=== PATIENT | female | born 1970 | race Caucasian/White ===

== ENCOUNTER 2021-12-03 08:59 | Emergency (ER) | payer OTHER ==
[2021-12-03] MEDS ORDERED: ACETAMINOPHEN 325 MG TABLET (FP) PO ONE (09:10)
[2021-12-03] MEDS ORDERED: SODIUM CHLORIDE 0.9% 1000 ML INFUS.BAG IV ONE (09:10)
[2021-12-03] MEDS ORDERED: ACETAMINOPHEN 325 MG TABLET (FP) ONE (09:24)
[2021-12-03 09:48] VITALS: TEMP 98.8; BMI 21.7
[2021-12-03 11:52] LABS: BASO % 1.2 % (0-2.0); HEMATOCRIT 38.3 % (32.4-45.2); HEMOGLOBIN 13.2 GM/dL (10.7-15.3); LYMPH % 15.1 % (8-40); MCHC 34.4 g/dl (32.0-36.0); MEAN CELL VOLUME 87.2 fl (80-96); MEAN PLT VOLUME 8.8 fl (7.5-11.1); MONO % 4.8 % (3.8-10.2); NEUT % 77.9 % (42.8-82.8); PLATELET COUNT 280 10^3/uL (134-434); RBC 4.39 M/mm3 (3.60-5.2); RDW 13.2 % (11.6-15.6); WHITE BLOOD COUNT 9.1 K/mm3 (4.0-10.0)
[2021-12-03 11:58] LABS: CALCIUM 8.9 mg/dL (8.5-10.1)
[2021-12-03 11:59] LABS: ALBUMIN 4.2 g/dl (3.4-5.0); BLOOD UREA NITROGEN 11.6 mg/dL (7-18)
[2021-12-03 12:01] LABS: CREATININE 0.7 mg/dL (0.55-1.3)
[2021-12-03 12:03] LABS: BILIRUBIN,TOTAL 0.7 mg/dL (0.2-1); TOT PROT 7.3 g/dl (6.4-8.2)
[2021-12-03 12:28] VITALS: BP 145/65; PULSE 65
== END 2021-12-03 12:29 | disposition home or self-care (01) ==
LOC: FER 08:59
PROC: 0HQ0XZZ Repair Scalp Skin, External Approach (ICD-10-PCS; principal; 2021-12-03)
DX: R55 Syncope and collapse (principal); S01.01XA Laceration without foreign body of scalp, initial encounter; W19.XXXA Unspecified fall, initial encounter
CPT/HCPCS: 36415; 70450-TC; 71045-TC-FY; 80053; 84484; 85025; 93005; 99285-25

== ENCOUNTER 2023-06-20 14:04 | Emergency (ER) | payer OTHER ==
[2023-06-20] MEDS ORDERED: FAMOTIDINE 20 MG TABLET PO ONE (14:06)
[2023-06-20] MEDS ORDERED: diphenhydrAMINE HCL 25 MG CAPSULE (FP) PO ONE (14:06)
[2023-06-20] MEDS ORDERED: predniSONE 10 MG TABLET (UD) ONE (14:27)
[2023-06-20] MEDS ORDERED: FAMOTIDINE 20 MG TABLET ONE (14:27)
[2023-06-20] MEDS ORDERED: predniSONE 20 MG TABLET (UD) ONE (14:27)
[2023-06-20] MEDS ORDERED: diphenhydrAMINE HCL 50 MG CAPSULE ONE (14:28)
[2023-06-20] MEDS ORDERED: predniSONE 20 MG TABLET (UD) PO ONE (14:32)
[2023-06-20 15:49] VITALS: BP 132/74; PULSE 78; RESP 18; TEMP 98.6; BMI 18.6
[2023-06-20] MEDS ORDERED: DOXYCYCLINE HYCLATE 100 MG CAPSULE PO ONE ×2 (16:06→16:22)
[2023-06-21] MEDS ORDERED: predniSONE 20 MG TABLET (UD) PO ONE (14:06)
== END 2023-06-20 16:25 | disposition home or self-care (01) ==
LOC: FER 14:04
DX: T63.441A Toxic effect of venom of bees, accidental (unintentional), initial encounter (principal); R22.31 Localized swelling, mass and lump, right upper limb; M79.644 Pain in right finger(s)
CPT/HCPCS: 99283-25

== ENCOUNTER 2024-05-29 18:34 | Emergency (ER) | payer OTHER ==
[2024-05-29 18:42] VITALS: BP 134/90; BMI 21.3
[2024-05-29] MEDS ORDERED: predniSONE 20 MG TABLET (UD) ONE (18:43)
[2024-05-29] MEDS: predniSONE 20 MG TABLET (UD) PO ONE (18:45)
[2024-05-29] MEDS ORDERED: FAMOTIDINE 20 MG TABLET ONE (18:52)
[2024-05-29] MEDS ORDERED: LORATADINE 10 MG TABLET ONE (18:53)
[2024-05-29] MEDS: FAMOTIDINE 20 MG TABLET PO ONE (18:54)
[2024-05-29] MEDS: LORATADINE 10 MG TABLET PO ONE (18:54)
[2024-05-29 19:21] VITALS: TEMP 98
[2024-05-29 20:23] VITALS: PULSE 77; RESP 16
== END 2024-05-29 19:45 | disposition home or self-care (01) ==
LOC: FER 18:34
DX: T63.441A Toxic effect of venom of bees, accidental (unintentional), initial encounter (principal)
CPT/HCPCS: 99283-25